=== PATIENT | female | born 1990 | race Asian ===

== ENCOUNTER 2017-08-30 19:46 | Outpatient (CLI) | payer OTHER ==
[2017-08-30 22:11] LABS: ADD UMIC NO; UR ASCORBIC ACID NEGATIVE (NEGATIVE); UR BILIRUBIN (Dip) NEGATIVE (NEGATIVE); UR BLOOD (Dip) NEGATIVE (NEGATIVE); UR CLARITY CLEAR (CLEAR); UR COLOR COLORLESS (YELLOW); UR GLUCOSE (Dip) NEGATIVE (NEGATIVE); UR KETONES (Dip) NEGATIVE (NEGATIVE); UR LEUKOCYTE ESTERASE (Dip) NEGATIVE Leu/ul (NEGATIVE); UR NITRITE (Dip) NEGATIVE (NEGATIVE); UR SPECIFIC GRAVITY (Dip) 1.003 (1.003-1.030); UR TOTAL PROTEIN (Dip) NEGATIVE (NEGATIVE); UR UROBILINOGEN (Dip) NEGATIVE (NEGATIVE)
== END 2017-08-30 22:59 | disposition home or self-care (01) ==
LOC: OBT 19:46 → L-D 19:48 → OBT 22:59
DX: O36.8130 Decreased fetal movements, third trimester, not applicable or unspecified (principal); Z3A.29 29 weeks gestation of pregnancy
CPT/HCPCS: 76818; 81003

== ENCOUNTER 2017-11-04 08:19 | Inpatient (IN) | payer OTHER ==
[~2017-11-04 08:19] MED LIST: OXYTOCIN 30 UNITS/LR 500 ML BAG IV
[2017-11-04] MEDS: LACTATED RINGER'S 1,000 ML IV ×3 (08:40→18:37)
[2017-11-04] MEDS ORDERED: CEFAZOLIN 2 GM/50 ML (PMX) 50 ML IV (09:00)
[2017-11-04] MEDS ORDERED: MISOPROSTOL 200 MCG TAB PR ×2 (09:00→11:00)
[2017-11-04] MEDS ORDERED: CARBOPROST 250 MCG INJ IM ×2 (09:00→11:00)
[2017-11-04] MEDS ORDERED: METHYLERGONOVINE 0.2 MG INJ IM ×2 (09:00→11:00)
[2017-11-04] MEDS ORDERED: OXYTOCIN 30 UNITS/LR 500 ML IV ×3 (09:00→11:00)
[2017-11-04 09:14] LABS: ADD MAN DIFF? NO
[2017-11-04 09:25] LABS: BASOPHILS % 0.2 % (0.0-2.0); EOSINOPHILS # 0.2 10^3/ul (0.0-0.5); EOSINOPHILS % 1.4 % (0.0-7.0); HEMOGLOBIN 11.9 g/dl (12.0-16.0); LYMPHOCYTES # 2.5 10^3/ul (0.8-2.9); MEAN CORPUSCULAR HEMOGLOBIN 27.4 pg (29.0-33.0); MEAN CORPUSCULAR HGB CONC 33.1 g/dl (32.0-37.0); MEAN CORPUSCULAR VOLUME 82.9 fl (82.0-101.0); MONOCYTE # 0.6 10^3/ul (0.3-0.9); MONOCYTES % 6.1 % (0.0-11.0); NEUTROPHILS % 67.6 % (39.0-77.0); PLATELET COUNT 176 10^3/UL (140-415); RED BLOOD COUNT 4.34 10^6/ul (4.20-5.40); RED CELL DISTRIBUTION WIDTH 14.3 % (11.5-14.5)
[2017-11-04 09:25] LABS: WHITE BLOOD COUNT 10.4 10^3/ul (4.8-10.8)
[2017-11-04 09:47] LABS: INR 0.83; PROTIME 11.5 Sec (11.9-14.9); PT RATIO 0.9
[2017-11-04 09:48] LABS: PARTIAL THROMBOPLASTIN TIME 26.9 Sec (25.0-35.0)
[2017-11-04 10:23] LABS: HEPATITIS B SURFACE ANTIGEN NEGATIVE (NEGATIVE)
[2017-11-04] MEDS ORDERED: morphine SULFATE/PF (10 MG/10 ML) INJ (10:29)
[2017-11-04] MEDS ORDERED: BUPIVACAINE 0.75%/DEXT (SPINAL) 2 ML INJ (10:29)
[2017-11-04] MEDS ORDERED: FENTAnyl 50 MCG/ML VIAL (10:29)
[2017-11-04] MEDS ORDERED: ZOLPIDEM 5 MG TAB PO (10:30)
[2017-11-04] MEDS ORDERED: HYDROmorphONE 0.5 MG/0.5 ML SYG IV ×2 (10:30)
[2017-11-04] MEDS ORDERED: NALOXONE (0.4 MG/ML) INJ IV (10:30)
[2017-11-04] MEDS ORDERED: ONDANSETRON 4 MG INJ IV (10:30)
[2017-11-04] MEDS ORDERED: DIPHENHYDRAMINE 50 MG INJ IV (10:30)
[2017-11-04] MEDS ORDERED: LIDOCAINE 1.5%/EPI MPF (SDV) 30 ML VIAL (10:55)
[2017-11-04] MEDS ORDERED: SODIUM BICARBONATE (IV ADD) 50 ML (10:55)
[2017-11-04] MEDS ORDERED: NA PHOSPHATE/BIPHOS 133 ML ENEMA PR (11:00)
[2017-11-04] MEDS ORDERED: METHYLERGONOVINE 0.2 MG TAB PO (11:00)
[2017-11-04] MEDS ORDERED: LANOLIN 7 GM TUBE TOP (11:00)
[2017-11-04] MEDS ORDERED: DEXAMETHASONE 4 MG/ML 1 ML INJ (11:12)
[2017-11-04] MEDS ORDERED: MIDAZOLAM 1 MG/ML 2 ML INJ (11:14)
[2017-11-04 11:43] LABS: Arterial Cord Blood pCO2 69.3 mmHG (25-50); CBA Base Excess -3.3 mmol/L; CBA COHb 0.3 %; CBA Total Hemglobin 15.4 g/dl; Cord Blood Arterial pO2 10.7 mmHG (15.0-45.0); Fraction OxyHgb Cord Arterial 13.5 %; MODE ROOM AIR; MetHgb Cord Arterial 2.1 %; Sample Type CBA; Site CORD
[2017-11-04] MEDS: CEFAZOLIN 2 GM/50 ML (PMX) 50 ML IV ×2 (13:45→19:03)
[2017-11-04] MEDS: IBUPROFEN 800 MG TAB PO ×2 (14:00→22:00)
[2017-11-04] MEDS: OXYTOCIN 30 UNITS/LR 500 ML IV (14:13)
[2017-11-04] MEDS: KETOROLAC 30 MG INJ IV (14:30)
[2017-11-04 18:58] LABS: RAPID PLASMA REAGIN NONREACTIVE (NR)
[2017-11-04] MEDS: SENNA/DOCUSATE NA (8.6MG/50MG) TAB PO (21:00)
[2017-11-05] MEDS: LACTATED RINGER'S 1,000 ML IV (00:38)
[2017-11-05] MEDS: CEFAZOLIN 2 GM/50 ML (PMX) 50 ML IV (03:00)
[2017-11-05] MEDS: IBUPROFEN 800 MG TAB PO ×3 (06:00→22:00)
[2017-11-05] MEDS: KETOROLAC 30 MG INJ IV ×4 (06:08→22:52)
[2017-11-05] MEDS: LACTATED RINGER'S 600 ML IV (08:56)
[2017-11-05] MEDS: SENNA/DOCUSATE NA (8.6MG/50MG) TAB PO ×2 (10:51→21:10)
[2017-11-05 11:43] LABS: ADD MAN DIFF? NO
[2017-11-05 11:55] LABS: WHITE BLOOD COUNT 13.3 10^3/ul (4.8-10.8)
[2017-11-05 11:55] LABS: BASOPHILS % 0.2 % (0.0-2.0); EOSINOPHILS # 0.1 10^3/ul (0.0-0.5); EOSINOPHILS % 0.8 % (0.0-7.0); HEMATOCRIT 28.8 % (37.0-47.0); HEMOGLOBIN 9.5 g/dl (12.0-16.0); LYMPHOCYTES # 2.9 10^3/ul (0.8-2.9); LYMPHOCYTES % 21.5 % (15.0-51.0); MEAN PLATELET VOLUME 10.2 fl (7.4-10.4); MONOCYTE # 0.8 10^3/ul (0.3-0.9); MONOCYTES % 5.8 % (0.0-11.0); NEUTROPHIL # 9.5 10^3/ul (1.6-7.5); NEUTROPHILS % 71.1 % (39.0-77.0); PLATELET COUNT 167 10^3/UL (140-415); RED BLOOD COUNT 3.39 10^6/ul (4.20-5.40); RED CELL DISTRIBUTION WIDTH 14.1 % (11.5-14.5)
[2017-11-05] MEDS: HYDROCODONE/APAP (5/325) TAB PO (21:14)
[2017-11-06] MEDS: KETOROLAC 30 MG INJ IV ×3 (04:34→17:15)
[2017-11-06] MEDS: IBUPROFEN 800 MG TAB PO ×2 (05:55→21:29)
[2017-11-06] MEDS: SENNA/DOCUSATE NA (8.6MG/50MG) TAB PO ×2 (09:54→21:29)
[2017-11-07] MEDS: HYDROCODONE/APAP (5/325) TAB PO (01:42)
[2017-11-07] MEDS: IBUPROFEN 800 MG TAB PO ×2 (05:40→14:36)
[2017-11-07] MEDS: DIPHTH/TET/ACEL PERTUSS (ADULT) 0.5 ML VIAL IM* (09:00)
[2017-11-07] MEDS: SENNA/DOCUSATE NA (8.6MG/50MG) TAB PO (09:08)
== END 2017-11-07 18:10 | disposition home or self-care (01) | DRG 766 ==
LOC: L-D 08:19 → PP1 15:48
PROVIDERS: Obstetrics & Gynecology
PROC: 10D00Z1 Extraction of Products of Conception, Low, Open Approach (ICD-10-PCS; principal; 2017-11-04 09:00)
PROC: 3E033VJ Introduction of Other Hormone into Peripheral Vein, Percutaneous Approach (ICD-10-PCS; 2017-11-04 09:00)
DX: O34.211 Maternal care for low transverse scar from previous cesarean delivery (principal); Z3A.37 37 weeks gestation of pregnancy; Z37.0 Single live birth
CPT/HCPCS: 36600; 82803; 85025; 85610; 85730; 86592; 86850; 86900; 86901; 87340; 99464

== ENCOUNTER 2017-12-14 20:49 | Emergency (ER) | payer OTHER | END 2017-12-14 22:19 | disposition home or self-care (01) | LOC: FTE 20:49 | DX: O86.0 Infection of obstetric surgical wound (principal); B96.89 Other specified bacterial agents as the cause of diseases classified elsewhere | CPT/HCPCS: 99283; Z7502 ==